=== PATIENT | female | born 1990 | race African-American/Black ===

== ENCOUNTER 2018-09-02 00:35 | Emergency (ER) | payer OTHER ==
[~2018-09-02] VITALS: Ht 157.5 cm; Wt 59.0 kg
[2018-09-02] MEDS ORDERED: FOLIC ACID1 M1 PO (00:48)
[2018-09-02] MEDS ORDERED: MORPHINE S10 MG/5 ML ORAL (00:48)
[2018-09-02] MEDS ORDERED: Sodium Chloride 500ML 500 ML IV ONE (00:50)
[2018-09-02] MEDS ORDERED: HYDROmorphone 1mg/ml Carpuject IVP ONE ×3 (01:00→05:30)
[2018-09-02] MEDS ORDERED: DiphenhydrAMINE 50mg/ml Inj IVP ONE ×2 (01:00→03:45)
[2018-09-02] MEDS ORDERED: Sodium Chloride 500ML 550 ML IV SCH (01:00)
[2018-09-02 01:13] VITALS: BP 109/71
[2018-09-02 02:32] LABS: APPEARANCE,URINE CLEAR; BILIRUBIN, URINE NEGATIVE (NEGATIVE); COLOR,URINE PALE YELLOW; GLUCOSE, URINE (UA) NEGATIVE (NEGATIVE); KETONES,URINE NEGATIVE (NEGATIVE); LEUKOCYTE ESTERASE ,URINE NEGATIVE (NEGATIVE); NITRITE,URINE NEGATIVE (NEGATIVE); PH,URINE 6.5 (4.5-8.0); PROTEIN,URINE 4+ (NEGATIVE); UROBILINOGEN,URINE NORMAL MG/DL (0.0-1.0)
[2018-09-02 03:00] VITALS: BP 118/63
[2018-09-02] MEDS ORDERED: LET 3ml Soln TOPIC ONE (05:30)
[2018-09-02 06:00] VITALS: BP 115/76
[2018-09-02 06:20] VITALS: BP 115/76
--- NOTE | 2018-09-02 07:32 | Emergency Room Report ---
History of Present Illness General Chief Complaint: General Complaint Source: Patient Present Illness HPI Patient presents with sickle cell pain. Back and most joints. Denies fever or chills. Taking morphine 5 mg which she states is not controlling the pain. No productive cough, chest pain, NVD. She states that usually when this happens, she gets 3 doses of pain medicine (Dilaudid) and is sent home unless she needs transfusion. She has a PICC line R arm. She states that usually she gets treatment there but that blood samples not able to be obtained from line. No inflammation at site of line. Had exchange transfusion at beginning of the month. Not . No dysuria. No calf pain, edema. No diabetes. No depression. Allergies: Coded Allergies: ACETAMINOPHEN (Verified Allergy, Unknown, 09/02/18) CEFTRIAXONE (Verified Allergy, Unknown, 09/02/18) HYDROCODONE (Verified Allergy, Unknown, 09/02/18) LEVOFLOXACIN (Verified Allergy, Unknown, 09/02/18) PENICILLINS (Verified Allergy, Unknown, 09/02/18) VANCOMYCIN (Verified Allergy, Unknown, 09/02/18) Patient History Past Medical History: see triage record Past Surgical History: other - PICC line Social History: Denies: smoking Social History Narrative From [place] but visiting family here - with boyfriend Last Menstrual Period: 08/28/2018 Now: No : 6 Para: 4 Reviewed Nursing Documentation: PMH: Agreed; PSxH: Agreed Nursing Documentation-PMH Past Medical History: No History, Except For Hx Cardiac Problems: No - sickle cell Review of Systems All Other Systems: negative except mentioned in HPI Physical Exam Vital Signs Date Time Temp Pulse Resp B/P (MAP) Pulse Ox O2 Delivery O2 Flow Rate FiO2 09/02/18 00:43 98.4 102 16 109/71 94 Room Air 09/02/18 01:13 99 Sp02 EP Interpretation: reviewed, normal General Appearance: well appearing, no apparent distress, GCS 15 Head: normocephalic Eyes: bilateral eye normal inspection, bilateral eye PERRL, bilateral eye other - no pallor ENT: moist mucus membranes Neck: supple Respiratory: lungs clear, normal breath sounds Cardiovascular #1: regular rate, rhythm Cardiovascular #2: 2+ radial (R), 2+ femoral (R) Gastrointestinal: normal inspection, normal bowel sounds, non tender, no mass, non-distended Genitourinary: no CVA tenderness Musculoskeletal: back normal, gait/station normal, normal range of motion Neurologic: alert, oriented x3, grossly normal Psychiatric: mood/affect normal Skin: normal inspection, warm/dry Medical Decision Making Diagnostic Impression: Primary Impression: Sickle cell anemia with pain Additional Impression: Possible drug seeking behavior ER Course Patient with h/o sickle cell anemia with pain. DDx: occult infection, sickle cell crisis, bone marrow failure, inadequate pain control amongst others. Evaluation with labs, EKG, CXR. Treatment with IV hydration and analgesia. Analgesia given. Unable to draw blood. Refuses further attempts to draw blood unless more analgesia given. Patient refused CXR ( not informed). Lab and RN's unable to draw blood. L.E.T. applied by me to R femoral area. At attempt to draw blood femorally, she refuses to have blood drawn. Risk of due to bone marrow failure of infection explained to patient including . She understands, is not narcotized, but refuses to have blood drawn. Signed AMA. States will see PMD 09/03. Laboratory Tests Test 09/02/18 02:20 Urine Color Pale yellow Urine Appearance Clear Urine pH 6.5 (4.5-8.0) Urine Specific [place] 1.010 (1.005-1.035) Urine Protein 4+ (NEGATIVE) H Urine Glucose (UA) Negative (NEGATIVE) Urine Ketones Negative (NEGATIVE) Urine Blood Negative (NEGATIVE) Urine Nitrite Negative (NEGATIVE) Urine Bilirubin Negative (NEGATIVE) Urine Urobilinogen Normal MG/DL (0.0-1.0) Urine Leukocyte Esterase Negative (NEGATIVE) Urine RBC 0-2 /HPF (0 - 2) Urine WBC 0-2 /HPF (0 - 2) Urine Squamous Epithelial Cells Many /LPF (NONE/OCC) H Urine Bacteria None /HPF (NONE) Urine HCG, Qualitative Negative (NEGATIVE) Urine Opiates Screen Positive (NEGATIVE) H Urine Barbiturates Screen Negative (NEGATIVE) Phencyclidine (PCP) Screen Negative (NEGATIVE) Urine Amphetamines Screen Negative (NEGATIVE) Urine Benzodiazepines Screen Negative (NEGATIVE) Urine Cocaine Screen Negative (NEGATIVE) Urine Marijuana (THC) Screen Negative (NEGATIVE) EKG Diagnostic Results Rate: normal Rhythm: NSR ST Segments: no acute changes Rhythm Strip Diag. Results EP Interpretation: yes Rhythm: NSR, no PVC's, no ectopy Last Vital Signs Date Time Temp Pulse Resp B/P (MAP) Pulse Ox O2 Delivery O2 Flow Rate FiO2 09/02/18 06:20 98.6 65 13 115/76 95 Room Air 99 Status: improved Disposition: AGAINST MEDICAL ADVICE Condition: Improved Referrals: [facility] (PCP) Carlos Olmstead MD Sep 02, 2018 07:32
--- NOTE | 2018-09-02 12:20 | Cardiology Report ---
APPROVED REPORT EKG Measurement Heart [id number] Normal sinus rhythm Moderate voltage criteria for LVH, may be normal variant Nonspecific T wave abnormality Abnormal ECG
== END 2018-09-02 06:20 | disposition left against medical advice (07) ==
LOC: EMR 01:01
DX: D57.00 Hb-SS disease with crisis, unspecified (principal); Z88.0 Allergy status to penicillin; Z88.8 Allergy status to other drugs, medicaments and biological substances
CPT/HCPCS: 80307; 81003; 81025; 93005; 96361; 96374; 96375; 96376; 99284; J1170; J1200; J2405

== ENCOUNTER 2019-10-25 08:33 | Inpatient (IN) | payer OTHER ==
[~2019-10-25] VITALS: Ht 157.5 cm; Wt 63.5 kg
[~2019-10-25 08:33] MED LIST: FOLIC ACID1 M1 PO; MORPHINE S10 MG/5 ML ORAL
[2019-10-25] MEDS ORDERED: MORPHINE IR15 MG ORAL (08:40)
[2019-10-25] MEDS ORDERED: Metoclopramide 10mg/2ml Inj IVP ONE (09:00)
[2019-10-25] MEDS ORDERED: DiphenhydrAMINE 50mg/ml Inj IVP ONE ×3 (09:00→13:00)
[2019-10-25] MEDS ORDERED: HYDROmorphone 1mg/ml Carpuject IVP ONE ×3 (09:00→16:15)
--- NOTE | 2019-10-25 09:02 | Emergency Room Report ---
History of Present Illness General Chief Complaint: Pain Source: Patient Present Illness HPI Patient presents with 5 days of total body pain. This is how her sickle cell presents when she is in crisis. She denies fevers or chills. No vomiting or diarrhea. She has slight dysuria. Her last menstruation ended yesterday. In September she had a miscarriage at 5 months. She received blood transfusions at that time. She has been taking morphine 4 mg and it has not been controlling the pain. She has access in both of her arms - PICC lines. No sore throat, chest pain, palpitations, abdominal pain, shortness of breath, rashes, depression, anxiety, visual changes, dizziness, headache. Patient presented one time before with sickle cell pain. At that time she had no venous access. She declined femoral stick for blood and signed out AGAINST MEDICAL ADVICE. She was pressuring to have treatment with opiates. She claims that she usually gets better with 3 opiate shots and is able to go home most of the time. She lives in [place], [place]. She states she is considering moving to this area as there are no hospitals close to where she lives. Allergies: Coded Allergies: CEFTRIAXONE (Verified Allergy, Unknown, 09/02/18) HYDROCODONE (Verified Allergy, Unknown, 09/02/18) KETOROLAC (Verified Allergy, Unknown, 10/25/19) LEVOFLOXACIN (Verified Allergy, Unknown, 09/02/18) PENICILLINS (Verified Allergy, Unknown, 09/02/18) TRAMADOL (Verified Allergy, Unknown, 10/25/19) VANCOMYCIN (Verified Allergy, Unknown, 09/02/18) Patient History Past Medical History: see triage record Social History: Denies: smoking, alcohol use, drug use Social History Narrative Has children, they are being watched by her aunt -lives near [place]. Planning on moving back to this area : 7 Para: 4 Reviewed Nursing Documentation: PMH: Agreed; PSxH: Agreed Nursing Documentation-PMH Hx Cardiac Problems: No - sickle cell Review of Systems All Other Systems: negative except mentioned in HPI Physical Exam Vital Signs Date Time Temp Pulse Resp B/P (MAP) Pulse Ox O2 Delivery O2 Flow Rate FiO2 10/25/19 08:37 98.4 90 20 128/85 (99) 99 Sp02 EP Interpretation: reviewed, normal General Appearance: well appearing, no apparent distress, GCS 15 Head: normocephalic Eyes: bilateral eye PERRL, bilateral eye conjunctivae pale ENT: moist mucus membranes Neck: supple Respiratory: lungs clear, normal breath sounds Cardiovascular #1: regular rate, rhythm Cardiovascular #2: 2+ radial (R) Gastrointestinal: normal inspection, normal bowel sounds, non tender, no mass, non-distended Musculoskeletal: back normal, normal range of motion, gait/station normal Neurologic: alert, oriented x3 Psychiatric: mood/affect normal Skin: pallor Medical Decision Making Diagnostic Impression: Primary Impression: Sickle cell anemia with pain Additional Impression: UTI (urinary tract infection) Qualified Codes: N39.0 - Urinary tract infection, site not specified ER Course Patient with history of sickle cell presents with pain. Differential includes crisis, viral infection, urinary tract infection, bone marrow failure, possible drug-seeking behavior amongst others. Evaluation with EKG and labs. Treatment with IV hydration, Reglan, Benadryl and Dilaudid. Patient states she does not feel that she needs to be hospitalized at this time. Bloods drawn by HERMES shepherd. Elevated white count. Hemoglobin 8.5. Elevated LDH. Elevated reticulocyte count. Urinalysis with too numerous to count white cells. Elevated bilirubin. Tox screen positive for opiates. Rocephin ordered. Patient improved but still feels pain is not controlled after several doses of Dilaudid. Patient pressuring to have Dilaudid instead of fentanyl. Pressuring to have more doses of Benadryl. Vistaril given orally. Due to the combination of lack of pain control and UTI patient admitted to the hospital. Examined by Dr. Gallego in ED. Laboratory Tests Test 10/25/19 09:10 10/25/19 12:55 Urine Color Yellow Urine Appearance Slightly cloudy Urine pH 6.5 (4.5-8.0) Urine Specific [place] 1.010 (1.005-1.035) Urine Protein 3+ (NEGATIVE) H Urine Glucose (UA) Negative (NEGATIVE) Urine Ketones Negative (NEGATIVE) Urine Blood 5+ (NEGATIVE) H Urine Nitrite Negative (NEGATIVE) Urine Bilirubin Negative (NEGATIVE) Urine Urobilinogen Normal MG/DL (0.0-1.0) Urine Leukocyte Esterase 3+ (NEGATIVE) H Urine RBC 10-15 /HPF (0 - 2) H Urine WBC Tntc /HPF (0 - 2) H Urine Squamous Epithelial Cells Few /LPF (NONE/OCC) Urine Bacteria Few /HPF (NONE) Urine HCG, Qualitative Negative (NEGATIVE) Urine Opiates Screen Positive (NEGATIVE) H Urine Barbiturates Screen Negative (NEGATIVE) Phencyclidine (PCP) Screen Negative (NEGATIVE) Urine Amphetamines Screen Negative (NEGATIVE) Urine Benzodiazepines Screen Negative (NEGATIVE) Urine Cocaine Screen Negative (NEGATIVE) Urine Marijuana (THC) Screen Negative (NEGATIVE) White Blood Count 17.7 K/UL (4.8-10.8) H Red Blood Count 2.79 M/UL (4.20-5.40) L Hemoglobin 8.5 G/DL (12.0-16.0) L Hematocrit 24.9 % (37.0-47.0) L Mean Corpuscular Volume 89 FL (80-99) Mean Corpuscular Hemoglobin 30.4 PG (27.0-31.0) Mean Corpuscular Hemoglobin Concent 34.1 G/DL (32.0-36.0) Red Cell Distribution Width 13.2 % (11.6-14.8) Platelet Count 499 K/UL (150-450) H Mean Platelet Volume 4.5 FL (6.5-10.1) L Neutrophils (%) (Auto) 50.1 % (45.0-75.0) Lymphocytes (%) (Auto) 36.6 % (20.0-45.0) Monocytes (%) (Auto) 5.4 % (1.0-10.0) Eosinophils (%) (Auto) 6.8 % (0.0-3.0) H Basophils (%) (Auto) 1.1 % (0.0-2.0) Reticulocyte Count 7.6 % (0.5-2.0) H Prothrombin Time 10.1 SEC (9.30-11.50) Prothrombin Time INR 0.9 (0.9-1.1) Activated Partial Thromboplast Time 29 SEC (23-33) Sodium Level 145 MMOL/L (136-145) Potassium Level 4.2 MMOL/L (3.5-5.1) Chloride Level 110 MMOL/L (98-107) H Carbon Dioxide Level 28 MMOL/L (21-32) Anion Gap 7 mmol/L (5-15) Blood Urea Nitrogen 8 mg/dL (7-18) Creatinine 0.8 MG/DL (0.55-1.30) Estimate Glomerular Filtration Rate > 60 mL/min (>60) Glucose Level 88 MG/DL (74-106) Calcium Level 9.1 MG/DL (8.5-10.1) Total Bilirubin 1.7 MG/DL (0.2-1.0) H Direct Bilirubin 0.1 MG/DL (0.0-0.3) Aspartate Amino Transferase (AST) 35 U/L (15-37) Alanine Aminotransferase (ALT) 44 U/L (12-78) Alkaline Phosphatase 96 U/L (46-116) Lactate Dehydrogenase 248 U/L (135-225) H Total Protein 6.9 G/DL (6.4-8.2) Albumin 3.1 G/DL (3.4-5.0) L Globulin 3.8 g/dL Albumin/Globulin Ratio 0.8 (1.0-2.7) L Lipase 76 U/L (73-393) EKG Diagnostic Results Rate: normal Rhythm: NSR ST Segments: no acute changes - Minimal voltage criteria for LVH nonspecific T wave abnormalities Rhythm Strip Diag. Results EP Interpretation: yes Rhythm: NSR, no PVC's, no ectopy Chest X-Ray Diagnostic Results Chest X-Ray Diagnostic Results : Chest X-Ray Ordered: Yes # of Views/Limited/Complete: 1 View Indication: Chest Pain EP Interpretation: Yes Interpretation: no consolidation, no effusion, no pneumothorax Last Vital Signs Date Time Temp Pulse Resp B/P (MAP) Pulse Ox O2 Delivery O2 Flow Rate FiO2 10/25/19 19:04 136/89 10/25/19 17:00 97.6 79 21 97 10/25/19 16:56 Nasal Cannula 2.0 Status: improved Disposition: ADMITTED INPATIENT Condition: Serious Carlos Olmstead MD Oct 25, 2019 09:02
--- NOTE | 2019-10-25 09:05 | NUR ---
ED Nurse Note: pt relates 5 days of body aches and pain from sickle cell crisis.. no n/v. no dyspnea
--- NOTE | 2019-10-25 09:15 | NUR ---
ED Nurse Note: picc line patent but will not draw labs. warp hand called to draw pt. pt tolerates meds well.
[2019-10-25 10:12] LABS: APPEARANCE,URINE SLIGHTLY CLOUDY; BILIRUBIN, URINE NEGATIVE (NEGATIVE); GLUCOSE, URINE (UA) NEGATIVE (NEGATIVE); KETONES,URINE NEGATIVE (NEGATIVE); LEUKOCYTE ESTERASE ,URINE 3+ (NEGATIVE); NITRITE,URINE NEGATIVE (NEGATIVE); PH,URINE 6.5 (4.5-8.0); PROTEIN,URINE 3+ (NEGATIVE); UROBILINOGEN,URINE NORMAL MG/DL (0.0-1.0)
[2019-10-25 10:17] LABS: COLOR,URINE YELLOW
--- NOTE | 2019-10-25 10:20 | NUR ---
ED Nurse Note: continuous pickling line pickler helper recalled to obtain labs. pt tolerating ivf and meds well
--- NOTE | 2019-10-25 10:45 | NUR ---
ED Nurse Note: card doffer recalled and md aware pt requests more pain meds
[2019-10-25 10:55] VITALS: BP 124/77
--- NOTE | 2019-10-25 10:57 | NUR ---
ED Nurse Note: hotel clerk here to draw pt.
--- NOTE | 2019-10-25 11:39 | NUR ---
ED Nurse Note: weed science research technician here trying to draw labs. tolerates po well., pt remedicated for itching.
[2019-10-25 13:16] LABS: BLOOD UREA NITROGEN 8 mg/dL (7-18); CALCIUM 9.1 MG/DL (8.5-10.1); SODIUM 145 MMOL/L (136-145)
[2019-10-25 13:26] LABS: BASOPHILS % (AUTO) 1.1 % (0.0-2.0); EOSINOPHILS % (AUTO) 6.8 % (0.0-3.0); HEMATOCRIT 24.9 % (37.0-47.0); HEMOGLOBIN 8.5 G/DL (12.0-16.0); LYMPHOCYTES % (AUTO) 36.6 % (20.0-45.0); MEAN CORPUSCULAR VOLUME 89 FL (80-99); MONOCYTES % (AUTO) 5.4 % (1.0-10.0); NEUTROPHILS % (AUTO) 50.1 % (45.0-75.0); PLATELET COUNT 499 K/UL (150-450); RED BLOOD COUNT 2.79 M/UL (4.20-5.40); RED CELL DISTRIBUTION WIDTH 13.2 % (11.6-14.8); WHITE BLOOD COUNT 17.7 K/UL (4.8-10.8)
[2019-10-25 13:34] VITALS: BP 114/77
--- NOTE | 2019-10-25 13:34 | NUR ---
ED Nurse Note: pt tolerates femoral stick for lab obtainment by . pt with meds repeated for pain. no n/v
[2019-10-25 13:36] LABS: ANION GAP 7 mmol/L (5-15); CARBON DIOXIDE 28 MMOL/L (21-32); CHLORIDE 110 MMOL/L (98-107); CREATININE 0.8 MG/DL (0.55-1.30); POTASSIUM 4.2 MMOL/L (3.5-5.1)
[2019-10-25 13:46] LABS: ALANINE AMINOTRANSFERASE 44 U/L (12-78); ALBUMIN 3.1 G/DL (3.4-5.0); ALBUMIN/GLOBULIN RATIO 0.8 (1.0-2.7); ALKALINE PHOSPHATASE 96 U/L (46-116); ASPARTATE AMINO TRANSFERASE 35 U/L (15-37); BILIRUBIN,TOTAL 1.7 MG/DL (0.2-1.0)
[2019-10-25 13:48] LABS: BILIRUBIN,DIRECT 0.1 MG/DL (0.0-0.3)
[2019-10-25 14:19] LABS: INR 0.9 (0.9-1.1)
[2019-10-25] MEDS ORDERED: fentaNYL 100 mcg/2 mL IV ONE (16:15)
[2019-10-25 16:39] VITALS: BP 120/72
--- NOTE | 2019-10-25 16:39 | NUR ---
ED Nurse Note: pt to med surg with returned goods sorter. pain improved after last dose of meds prior to floor admission. no n/v
--- NOTE | 2019-10-25 16:50 | NUR ---
NURSE NOTES: Patient received from ER at 1650 to [address] [place], in stable condition. No distress on RA (sats 97% RA). O2 2L NC applied per order. Bilateral midlines noted, clamped. Patient refused skin assessment. VSS. Oriented patient to room, call light and medical equipment. Attempted to draw blood culture from TREY midline, no blood return, flushes easily. Generalized pain 9/10. No NV. Up to bathroom, voided. Last BM today (one hour ago per patient). Will call Dr. Gallego for admission orders. Call light in reach, bed in lowest position, will continue to monitor.
[2019-10-25 17:00] VITALS: BP 147/72
--- NOTE | 2019-10-25 18:16 | History & Physical ---
History of Present Illness General Date patient seen: Oct 25, 2019 Time patient seen: 04:00 Reason for Hospitalization: Pain Present Illness HPI This is a 29-year-old female with a past medical history of sickle cell disease who presents to the hospital complaining of diffuse body pain and joint pain. Patient was recently discharged from [facility] a couple days ago, specifics regarding this hospitalization are unclear however she presented today with 2 midlines. Currently patient states that the pain is severe and labs do show that she has an elevated LDH, reticulocyte count, and indirect bilirubin, hemoglobin is currently stable and is not indicative of need for blood transfusion at this time. Patient states at home she usually takes morphine but that is not helping the pain at the moment. She denies cough fever or chills. Pending chest x-ray to assess midline versus PICC line and rule out acute chest syndrome although patient does not have any symptoms. Her WBC is elevated however she denies symptoms of burning with urination cough, chest pain , or other discomfort besides diffuse body aches and joint pains, denies abdominal pain. Patient is being admitted to the hospital for sickle cell crisis, currently she is requesting IV Benadryl and IV Dilaudid, she endorses that she has allergies to many medications, virtually all antibiotics. She denies any other issues at this time but states she just is not severe diffuse body pain. Given that labs do confirm patient has been elevated retic count, LDH, and indirect bilirubin we will proceed with half NS, oxygen therapy, and aggressive pain management Allergies: Coded Allergies: CEFTRIAXONE (Verified Allergy, Unknown, 09/02/18) HYDROCODONE (Verified Allergy, Unknown, 09/02/18) KETOROLAC (Verified Allergy, Unknown, 10/25/19) LEVOFLOXACIN (Verified Allergy, Unknown, 09/02/18) PENICILLINS (Verified Allergy, Unknown, 09/02/18) TRAMADOL (Verified Allergy, Unknown, 10/25/19) VANCOMYCIN (Verified Allergy, Unknown, 09/02/18) Medication History Scheduled PRN Morphine HCl (Morphine Sulfate ER), 4 MG ORAL Q4HR PRN for For Pain, (Reported) Miscellaneous Medications Folic Acid (Folic Acid), 1 MG PO, (Reported) Discontinued Medications Morphine 10mg/5ml Oral Soln* (Morphine 10mg/5ml Oral Soln*), 10 MG ORAL for For Pain, (Reported) Discontinued Reason: Therapy completed Patient History Healthcare decision maker Resuscitation status Advanced Directive on File Review of Systems Review of Symptoms General ROS: no weight loss or fever Psychological ROS: no depression or mood changes, no memory loss Ophthalmic ROS: no visual changes or eye irritation ENT ROS: no nasal congestion, hearing loss, dizziness Allergy and Immunology ROS: no allergic symptoms or urticaria Hematological and Lymphatic ROS: no swollen glands, unusual bleeding or bruising Endocrine ROS: no polyuria, polydipsia, weight changes, temperature intolerance Respiratory ROS: no cough, shortness of breath, or wheezing Cardiovascular ROS: no chest pain or dyspnea on exertion Gastrointestinal ROS: denies abdominal pain, bright red blood in stool. Musculoskeletal ROS: + diffuse body pain, myalgias, joint pain Neurological ROS: no TIA or stroke symptoms Dermatological ROS: no new or changing skin lesions, rashes or pruritis Physical Exam Physical Exam General appearance: alert, cooperative, no distress, appears stated age Head: Normocephalic, without obvious abnormality, atraumatic Eyes: conjunctivae/corneas clear. PERRL, EOM's intact. Fundi benign Throat: Lips, mucosa, and tongue normal. Teeth and gums normal Neck: supple, symmetrical, trachea midline, no adenopathy, thyroid: not enlarged, symmetric, no tenderness/mass/nodules, no carotid bruit and no JVD Lungs: clear to auscultation bilaterally Heart: regular rate and rhythm, S1, S2 normal, no murmur, click, rub or gallop Abdomen: soft, non-tender. Bowel sounds normal. No masses, no organomegaly Extremities: extremities normal, atraumatic, no cyanosis or edema Pulses: 2+ and symmetric Skin: Skin color, texture, turgor normal. No rashes or lesions Neurologic: Grossly normal Last 24 Hour Vital Signs Date Time Temp Pulse Resp B/P (MAP) Pulse Ox O2 Delivery O2 Flow Rate FiO2 10/25/19 17:00 97.6 79 21 147/72 (97) 97 10/25/19 16:56 Nasal Cannula 2.0 10/25/19 16:39 98.4 72 20 120/72 99 Room Air 10/25/19 16:39 72 20 120/72 99 Room Air 10/25/19 13:34 77 20 114/77 99 Room Air 10/25/19 11:37 98.4 10/25/19 11:03 98.4 10/25/19 10:55 86 20 124/77 99 Room Air 10/25/19 08:37 98.4 90 20 128/85 (99) 99 Laboratory Tests Test 10/25/19 09:10 10/25/19 12:55 Urine Color Yellow Urine Appearance Slightly cloudy Urine pH 6.5 (4.5-8.0) Urine Specific [place] 1.010 (1.005-1.035) Urine Protein 3+ (NEGATIVE) H Urine Glucose (UA) Negative (NEGATIVE) Urine Ketones Negative (NEGATIVE) Urine Blood 5+ (NEGATIVE) H Urine Nitrite Negative (NEGATIVE) Urine Bilirubin Negative (NEGATIVE) Urine Urobilinogen Normal MG/DL (0.0-1.0) Urine Leukocyte Esterase 3+ (NEGATIVE) H Urine RBC 10-15 /HPF (0 - 2) H Urine WBC Tntc /HPF (0 - 2) H Urine Squamous Epithelial Cells Few /LPF (NONE/OCC) Urine Bacteria Few /HPF (NONE) Urine HCG, Qualitative Negative (NEGATIVE) Urine Opiates Screen Positive (NEGATIVE) H Urine Barbiturates Screen Negative (NEGATIVE) Phencyclidine (PCP) Screen Negative (NEGATIVE) Urine Amphetamines Screen Negative (NEGATIVE) Urine Benzodiazepines Screen Negative (NEGATIVE) Urine Cocaine Screen Negative (NEGATIVE) Urine Marijuana (THC) Screen Negative (NEGATIVE) White Blood Count 17.7 K/UL (4.8-10.8) H Red Blood Count 2.79 M/UL (4.20-5.40) L Hemoglobin 8.5 G/DL (12.0-16.0) L Hematocrit 24.9 % (37.0-47.0) L Mean Corpuscular Volume 89 FL (80-99) Mean Corpuscular Hemoglobin 30.4 PG (27.0-31.0) Mean Corpuscular Hemoglobin Concent 34.1 G/DL (32.0-36.0) Red Cell Distribution Width 13.2 % (11.6-14.8) Platelet Count 499 K/UL (150-450) H Mean Platelet Volume 4.5 FL (6.5-10.1) L Neutrophils (%) (Auto) 50.1 % (45.0-75.0) Lymphocytes (%) (Auto) 36.6 % (20.0-45.0) Monocytes (%) (Auto) 5.4 % (1.0-10.0) Eosinophils (%) (Auto) 6.8 % (0.0-3.0) H Basophils (%) (Auto) 1.1 % (0.0-2.0) Reticulocyte Count 7.6 % (0.5-2.0) H Prothrombin Time 10.1 SEC (9.30-11.50) Prothromb Time International Ratio 0.9 (0.9-1.1) Activated Partial Thromboplast Time 29 SEC (23-33) Sodium Level 145 MMOL/L (136-145) Potassium Level 4.2 MMOL/L (3.5-5.1) Chloride Level 110 MMOL/L (98-107) H Carbon Dioxide Level 28 MMOL/L (21-32) Anion Gap 7 mmol/L (5-15) Blood Urea Nitrogen 8 mg/dL (7-18) Creatinine 0.8 MG/DL (0.55-1.30) Estimat Glomerular Filtration Rate > 60 mL/min (>60) Glucose Level 88 MG/DL (74-106) Calcium Level 9.1 MG/DL (8.5-10.1) Total Bilirubin 1.7 MG/DL (0.2-1.0) H Direct Bilirubin 0.1 MG/DL (0.0-0.3) Aspartate Amino Transf (AST/SGOT) 35 U/L (15-37) Alanine Aminotransferase (ALT/SGPT) 44 U/L (12-78) Alkaline Phosphatase 96 U/L (46-116) Lactate Dehydrogenase 248 U/L (135-225) H Total Protein 6.9 G/DL (6.4-8.2) Albumin 3.1 G/DL (3.4-5.0) L Globulin 3.8 g/dL Albumin/Globulin Ratio 0.8 (1.0-2.7) L Lipase 76 U/L (73-393) Height (Feet): 5 Height (Inches): 2.00 Weight (Pounds): 128 Medications Current Medications Medications (Trade) Dose Ordered Sig/Kelly Route PRN Reason Start Time Stop Time Status Last Admin Dose Admin Diphenhydramine HCl (Benadryl) 25 mg Q6H PRN IVP Itching 10/25/19 17:45 11/24/19 17:44 Enalaprilat (Vasotec) 2.5 mg EVERY 6 HOURS IV 10/25/19 18:00 11/24/19 17:59 Hydromorphone HCl (Dilaudid) 1 mg Q4H PRN IVP For Pain 10/25/19 17:45 11/01/19 17:44 Ondansetron HCl (Zofran) 4 mg Q6H PRN IVP Nausea & Vomiting 10/25/19 18:00 11/24/19 17:59 Sodium Chloride 1,000 ml @ 125 mls/hr Q8H IV 10/25/19 17:45 11/24/19 17:44 Sodium Chloride 1,000 ml @ 300 mls/hr Q3H20M IV 10/25/19 09:00 11/24/19 08:59 10/25/19 12:48 Assessment/Plan Status: stable Assessment/Plan: Assessment #Sickle cell crisis, labs reveal elevated reticulocyte count, LDH, indirect bilirubin, hemoglobin is currently stable and patient is not requiring blood transfusion #Leukocytosis, no obvious signs of infection at this point in time, however will obtain pancultures patient does have bilateral midlines, obtain urine culture, and chest x-ray Plan Half NS at 125 cc/h, nasal cannula 2 L at all times, aggressive pain control with IV.Dilaudid and Benadry (patient states this is the only pain medication that works for her, while labs are indicative of sickle cell will continue pain meds ) Pending chest x-ray to ensure no signs of infiltrate or developing infiltrate rule out ACS although doubt as patient is not hypoxic and has no symptoms Monitor daily LDH, reticulocyte count, indirect bilirubin Blood cultures Patient has multiple antibiotic allergies, will try doxycycline IV for now until blood cultures return and urine culture returns negative Folic acid and hydroxyurea PRN enalapril for elevated blood pressure Diet as tolerated Ambulate for DVT prophylaxis MIPS Hospital declaration INPATIENT level of care is warranted for this patient because patient is a 89 year old with who presents with suspicion of . I have a high level of concern because . Patient is at high risk for . Plan of care/treatment include . Patient care is expected to be greater than 2 midnights. OBSERVATION level of care is warranted for this patient. Patient is a 89 year old with who presents with . Patient will be admitted for 1 midnight, but if additional night(s) is/are necessary, patient will be converted to inpatient status for the entire hospitalization Disposition: Once the patient is stable to leave the hospital, I anticipate the patient will likely be discharged to the following environment: Estimated discharge date: I spent 70 minutes on this patient's case, and minutes was dedicated to counseling and/or care coordination. MIPS (Merit-based Incentive Payment System) Applicable CPT: 40245, 14962 CHECK ALL THAT ARE MET: Measure #5 (CHF): All ages. Prescribe MARCELINO/ARB upon discharge for patients with left ventricular systolic dysfunction. If not, the reason is clearly documented in the medical chart. Measure #8 (CHF): All ages. Prescribe a beta richie upon discharge for patients with left ventricular systolic dysfunction. If not, the reason is clearly documented in the medical chart. Measure #47 Advance care plan or surrogate decision maker documented in the medical record. Measure #130 The provider has documented, updated, or reviewed the patients current medication list and has documented it in the patients note. Measure #374 (All): Send report to referring provider. Measure #407(Sepsis due to MSSA bacteremia): Age 18+ Patient treated with a beta-lactam antibiotic (Nafcillin, Oxacillin or Cefazolin) as definitive therapy. MEDICAL COMPLEXITY High complexity medical decision making (need 2/3 categories) Problem - need 4 points Acute/new problem with new plan for workup (4 points, 1 max) Acute/new problem without additional workup (3 points, 1 max) Unstable chronic problem actively being managed (2 point each, 2 max) Stable chronic problem actively being managed (1 point each, 2 max) Self-limited/transient process (constipation, muscle ache, etc) (1 point each , 2 max) Data - need 4 points Reviewed labs/imaging studies (1 points, 2 max) Independent review of imaging (EKG, xrays, etc) (2 points, 2 max) Discussed case with consult/other MD/RN (2 points, 2 max) High Risk - qualify if have one of the following: Severe exacerbation of acute problem, acute mental status change, IV narcotics , monitoring drug levels (vancomycin, INR, tacrolimus etc) Phylicia Gallego D.O. Oct 25, 2019 18:16
[2019-10-25] MEDS: HYDROmorphone 1mg/ml Carpuject IVP PRN ×2 (18:35→22:46)
[2019-10-25] MEDS: DiphenhydrAMINE 50mg/ml Inj IVP PRN (18:45)
[2019-10-25 19:02] VITALS: BP 136/89
[2019-10-25] MEDS: Enalaprilat 1.25mg/ml Inj IV SCH (19:04)
--- NOTE | 2019-10-25 19:05 | NUR ---
NURSE NOTES: Patient updated with new admission orders/medications and upcoming CXR to check for line placement and any acute lung disease, patient verbalized understanding. Medicated with Dilaudid and Benadryl, see eMAR, tolerated well. Dinner tray and snack provided, no NV. IVF as ordered, see eMAR. Rechecked BP/HR stable, administered Vasotec as ordered. Will continue to monitor.
--- NOTE | 2019-10-25 19:43 | NUR ---
HAND-OFF: Report given to Noelle GAMA. Endorsed new admission orders.
--- NOTE | 2019-10-25 19:44 | NUR ---
NURSE NOTES: Received report & pt from LANETTE Lee. Pt lying in bed, a&ox4, on O2 via NC @ 2LPM. No s/s of acute distress & c/o 8 pain. Will give PRN pain med when due. DARIANA midline & TREY midline intact. TREY midline with IVF running as ordered. Plan of care discussed.
[2019-10-25 20:00] VITALS: BP 139/96
--- NOTE | 2019-10-25 20:15 | NUR ---
NURSE NOTES: Sand Conditioner was able to get blood peripherally for blood culture. Per AM shift report earlier, TREY midline double lumen port doesn't draw blood & DARIANA midline is backed up.
[2019-10-25] MEDS: Doxycycline Hyclate 100 MG in D5W 110 ML IV SCH (21:54)
--- NOTE | 2019-10-26 00:08 | NUR ---
NURSE NOTES: Pt refused scheduled Vasotec IV stating, "I don't have high blood pressure. Well, if my blood pressure is mot high, I don't need that". Explained risk & benefits but pt continued to refuse. BP checked 125/69 pulse rate 69.
[2019-10-26 00:10] VITALS: BP 125/89
[2019-10-26] MEDS: DiphenhydrAMINE 50mg/ml Inj IVP PRN ×3 (02:36→18:40)
[2019-10-26] MEDS: HYDROmorphone 1mg/ml Carpuject IVP PRN ×6 (02:37→22:53)
[2019-10-26 04:59] VITALS: BP 139/83
[2019-10-26] MEDS: Enalaprilat 1.25mg/ml Inj IV SCH ×5 (06:00→23:42)
--- NOTE | 2019-10-26 07:34 | NUR ---
HAND-OFF: Report given to LANETTE Mcgowan. Rounds done.
--- NOTE | 2019-10-26 07:35 | NUR ---
NURSE NOTES: Patient lying in bed awake. Complain of pain 9/10 and pain medication given by shift superintendent nurse. Will continue to monitor. Skin intact and dry. On O2 @ 2L via NC. Midline IV dressing intact and dry. Bed lowest position. Call light within reach. Will continue to monitor.
[2019-10-26 08:00] VITALS: BP 119/78
[2019-10-26] MEDS: Doxycycline Hyclate 100 MG in D5W 110 ML IV SCH ×2 (08:46→20:49)
[2019-10-26] MEDS: Hydroxyurea 500mg cap ORAL SCH (08:46)
[2019-10-26 12:00] VITALS: BP 108/79
--- NOTE | 2019-10-26 15:23 | NUR ---
*-* INSURANCE *-* ALL CLINICALS AND REVIEWS HAVE BEEN FAXED TO: [facility]# [phone] FAX# [phone] REVIEWS/CLINICALS
[2019-10-26 16:00] VITALS: BP 110/70
--- NOTE | 2019-10-26 16:00 | NUR ---
NURSE NOTES: Phlebotomy not able to get blood for morning lab. Spoke to regarding lab test and ok to do it tomorrow morning. Order noted and carried out.
--- NOTE | 2019-10-26 16:44 | Diagnostic Imaging Report ---
Indication: Acute chest syndrome, evaluation of line placement Technique: 2 views of the chest Comparison: No Findings: There is a right arm catheter, presumably a midline, tip terminating at the expected level of the right axillary vein. There are atelectatic changes at both lung bases. The lungs and pleural spaces are otherwise clear. There are cholecystectomy clips. The bones are unremarkable Impression: Right arm midline, tip terminating at the axillary vein level Bilateral basilar atelectasis
--- NOTE | 2019-10-26 17:11 | General Progress Note ---
Assessment/Plan Status: stable Assessment/Plan: #Sickle cell pain crisis, labs reveal elevated reticulocyte count, LDH, indirect bilirubin, hemoglobin is currently stable and patient is not requiring blood transfusion #Leukocytosis, no obvious signs of infection at this point in time, however will obtain pancultures patient does have bilateral midlines, obtain urine culture, and chest x-ray #Suspecte UTI. Rule out Pyelo Appreciate heme-onc consultation - need to confirm that she does in fact have sickle cell, though base on labs does appear likely - sickle cell screen is pending - consider hgb electrophoresis as well - hydroxyurea as needed to prevent cva/heart disease, vascular events in future - hemolysis labs as needed - IVF and pain management - Continue doxycycline for possible atypical pneumonia - Continue aztreonam for suspected UTI/pneumonia - patient with multiple abx allergies - 2v CXR: without consolidation - Will consult infectious disease # Hyperbiliribinemia - likely due to rbc breakdown - continue to monitor # Dehydration - goal of euvolemia - fluids started DVT ppx: Heparin SQ Code status: Full 38 minutes spent on this encounter. Discussed with RN and heme/onc. > 50% spent on counseling and care coordination. Time of note may not reflect time patient was seen. Subjective Allergies: Coded Allergies: CEFTRIAXONE (Verified Allergy, Unknown, 09/02/18) HYDROCODONE (Verified Allergy, Unknown, 09/02/18) KETOROLAC (Verified Allergy, Unknown, 10/25/19) LEVOFLOXACIN (Verified Allergy, Unknown, 09/02/18) PENICILLINS (Verified Allergy, Unknown, 09/02/18) TRAMADOL (Verified Allergy, Unknown, 10/25/19) VANCOMYCIN (Verified Allergy, Unknown, 09/02/18) Subjective No acute events overnight per nursing. Patient states that she is still having pain and that it is generalized but the pain medicine is working for her. She states that she is having some pain in her chest but it is more on palpation and associated with sickle cell pain crises that she is had in the past. Pain does not worsen on exertion. She denies any fevers or chills. She does endorse dysuria. Review of systems: Constitutional: Denies: chills, diaphoresis, fever, malaise, weakness, other HEENT: Denies: eye pain, blurred vision, tearing, double vision, ear pain, ear discharge, nose pain, nose congestion, throat pain, throat swelling, mouth pain , mouth swelling, Cardiovascular: Denies: chest pain, edema, lightheadedness, palpitations, syncope, Respiratory: Denies: cough, orthopnea, shortness of breath, SOB with excertion , SOB at rest, sputum, stridor, wheezing, other Gastrointestinal/Abdominal: Denies: abdomen distended, abdominal pain, black stools, tarry stools, blood in stool, constipated, diarrhea, difficulty swallowing, nausea, poor appetite, poor fluid intake, rectal bleeding, vomiting , other Genitourinary: See HPI Neurologic/Psychiatric: Denies: anxiety, depressed, emotional problems, headache, numbness, paresthesia, pre-existing deficit, seizure, tingling, tremors, weakness, other Endocrine: Denies: excessive sweating, flushing, intolerance to cold, intolerance to heat, increased hunger, increased thirst, increased urine, unexplained weight gain, unexplained weight loss, other Hematologic/Lymphatic: Denies: anemia, easy bleeding, easy bruising, other Objective Last 24 Hour Vital Signs Date Time Temp Pulse Resp B/P (MAP) Pulse Ox O2 Delivery O2 Flow Rate FiO2 10/26/19 12:00 97.0 72 18 108/79 (89) 95 10/26/19 12:00 108/79 10/26/19 09:00 Nasal Cannula 2.0 10/26/19 08:00 98.4 87 20 119/78 (92) 96 10/26/19 06:00 139/83 10/26/19 04:59 98.3 83 18 139/83 (101) 99 10/26/19 00:10 98.2 69 17 125/89 (101) 100 10/26/19 00:00 125/89 10/25/19 21:00 Nasal Cannula 2.0 10/25/19 20:00 98.9 82 18 139/96 (110) 100 10/25/19 19:04 136/89 10/25/19 19:02 92 136/89 (105) Intake and Output 10/25/19 10/26/19 19:00 07:00 Intake Total 1118 ml 1375 ml Balance 1118 ml 1375 ml Intake Oral 118 ml IV Total 1000 ml 1375 ml # Voids 2 # Bowel Movements 2 Height (Feet): 5 Height (Inches): 2.00 Weight (Pounds): 120 Objective General: WDWN female in NAD, A&O x 4 HEENT: Normocephalic cephalic atraumatic, pupils equal round reactive to light and accommodation, nares patent and no symmetrical, no tonsillar exudates, mucous membranes moist CV: Regular rate regular rhythm, no murmurs, rubs, or gallops Pulm: Lungs clear to auscultation bilaterally. No wheezes, rhonchi, or rales GI: Soft, nontender, nondistended, bowel sounds present Neuro: CN 2-12 intact bilaterally, no focal signs. Ext: No lower extremity edema bilaterally Skin: no rashes lesions or ulcers Msk: Joints symmetrical in upper extremity and lower extremity bilaterally, no joint swelling. Lymph: No lymphadenopathy in upper extremity and lower extremity Gerhard Morgan D.O. Oct 26, 2019 17:11
--- NOTE | 2019-10-26 19:27 | NUR ---
CASE MANAGEMENT: REVIEW 29 YEAR OLD FEMALE PRESENTED TO ED FROM HOME CC: PAIN X5 DAYS . HX SICKLE CELL SI: SICKLE CELL CRISIS . UTI T 98.4 HR 90 RR 20 BP 128/85 SAT 99% ROOM AIR WBC 17.7 H/H 8.5/24.[address] 7.6 IS: FENTANYL IV X1 DILAUDID IV X1 BENADRYL IV X1 REGLAN IV X1 NS IVF BOLUS X1 PATIENT ADMITTED TO MED/SURG UNIT 10/25/2019 DCP: PATIENT IS FROM HOME
--- NOTE | 2019-10-26 19:30 | NUR ---
HAND-OFF: Report given to Hung GAMA. Patient in stable condition.
--- NOTE | 2019-10-26 19:32 | NUR ---
NURSE NOTES: Received report from Renuka GAMA. Rounding is done with outgoing nurse. Patient in restroom with IV fluid running. Patient is a/o x4. C/o pain 05/19. Will give medication as ordered and Will continue to monitor. Patient doesn't wearing NC. Breathing is even and unlabored at this time. Midline IV dressing intact and dry. Bed is lowest position. Call light within reach. Will continue to monitor.
[2019-10-26] MEDS: Aztreonam Inj 2 GM in D5W 110 ML IVPB SCH (19:56)
[2019-10-26 20:00] VITALS: BP 131/87
--- NOTE | 2019-10-26 20:08 | NUR ---
NURSE NOTES: Patient didn't wear NC. Educated regarding O2 NC and patient wore NC with 2L/min at this time. Addendum: 10/26/19 at 2011 by Berto Conklin RN additional note: Breathing is even and unlabored with NC and No SOB noted at this time.
--- NOTE | 2019-10-26 20:34 | Consultation ---
History of Present Illness General Chief Complaint: Pain Present Illness Allergies: Coded Allergies: CEFTRIAXONE (Verified Allergy, Unknown, 09/02/18) HYDROCODONE (Verified Allergy, Unknown, 09/02/18) KETOROLAC (Verified Allergy, Unknown, 10/25/19) LEVOFLOXACIN (Verified Allergy, Unknown, 09/02/18) PENICILLINS (Verified Allergy, Unknown, 09/02/18) TRAMADOL (Verified Allergy, Unknown, 10/25/19) VANCOMYCIN (Verified Allergy, Unknown, 09/02/18) Medication History Scheduled PRN Morphine HCl (Morphine Sulfate ER), 4 MG ORAL Q4HR PRN for For Pain, (Reported) Miscellaneous Medications Folic Acid (Folic Acid), 1 MG PO, (Reported) Discontinued Medications Morphine 10mg/5ml Oral Soln* (Morphine 10mg/5ml Oral Soln*), 10 MG ORAL for For Pain, (Reported) Discontinued Reason: Therapy completed Patient History Healthcare decision maker Resuscitation status Full Code Advanced Directive on File No Physical Exam Last 24 Hour Vital Signs Date Time Temp Pulse Resp B/P (MAP) Pulse Ox O2 Delivery O2 Flow Rate FiO2 10/26/19 18:00 110/70 10/26/19 16:00 98.1 70 20 110/70 (83) 94 10/26/19 12:00 97.0 72 18 108/79 (89) 95 10/26/19 12:00 108/79 10/26/19 09:00 Nasal Cannula 2.0 10/26/19 08:00 98.4 87 20 119/78 (92) 96 10/26/19 06:00 139/83 10/26/19 04:59 98.3 83 18 139/83 (101) 99 10/26/19 00:10 98.2 69 17 125/89 (101) 100 10/26/19 00:00 125/89 10/25/19 21:00 Nasal Cannula 2.0 Intake and Output 10/25/19 10/26/19 19:00 07:00 Intake Total 1118 ml 1375 ml Balance 1118 ml 1375 ml Intake Oral 118 ml IV Total 1000 ml 1375 ml # Voids 2 # Bowel Movements 2 Height (Feet): 5 Height (Inches): 2.00 Weight (Pounds): 120 Medications Current Medications Medications (Trade) Dose Ordered Sig/Kelly Route PRN Reason Start Time Stop Time Status Last Admin Dose Admin Aztreonam 2 gm/ Dextrose 110 ml @ 220 mls/hr Q8H IVPB 10/26/19 20:00 11/02/19 19:59 10/26/19 19:56 Diphenhydramine HCl (Benadryl) 25 mg Q6H PRN IVP Itching 10/25/19 17:45 11/24/19 17:44 10/26/19 18:40 Doxycycline Hyclate 100 mg/ Dextrose 110 ml @ 110 mls/hr Q12HR IV 10/25/19 21:00 11/01/19 20:59 10/26/19 08:46 Enalaprilat (Vasotec) 2.5 mg EVERY 6 HOURS IV 10/25/19 18:00 11/24/19 17:59 10/25/19 19:04 Folic Acid (Folate) 1 mg DAILY ORAL 10/25/19 18:15 11/24/19 18:14 10/26/19 08:46 Hydromorphone HCl (Dilaudid) 1 mg Q4H PRN IVP For Pain 10/25/19 17:45 11/01/19 17:44 10/26/19 18:41 Hydroxyurea (Hydrea) 500 mg DAILY ORAL 10/26/19 09:00 10/31/19 08:59 10/26/19 08:46 Ondansetron HCl (Zofran) 4 mg Q6H PRN IVP Nausea & Vomiting 10/25/19 18:00 11/24/19 17:59 Sodium Chloride 1,000 ml @ 100 mls/hr Q10H IV 10/26/19 12:30 11/25/19 12:29 10/26/19 12:47 Assessment/Plan Assessment/Plan: Heme Consultation [facility] MD: Shanelle Omalley RFC: Sickle cell crisis DOS: 10/26/19 HPI This is a 29-year-old female with a past medical history of sickle cell disease who presents to the hospital complaining of diffuse body pain and joint pain. Patient was recently discharged from [place] a couple days ago, specifics regarding this hospitalization are unclear however she presented today with 2 midlines. Currently patient states that the pain is severe and labs do show that she has an elevated LDH, reticulocyte count, and indirect bilirubin, hemoglobin is currently stable and is not indicative of need for blood transfusion at this time. Patient states at home she usually takes morphine but that is not helping the pain at the moment. She denies cough fever or chills. Pending chest x-ray to assess midline versus PICC line and rule out acute chest syndrome although patient does not have any symptoms. Her WBC is elevated however she denies symptoms of burning with urination cough, chest pain , or other discomfort besides diffuse body aches and joint pains, denies abdominal pain. Patient is being admitted to the hospital for sickle cell crisis, currently she is requesting IV Benadryl and IV Dilaudid, she endorses that she has allergies to many medications, virtually all antibiotics. She denies any other issues at this time but states she just is not severe diffuse body pain. Given that labs do confirm patient has been elevated retic count, LDH, and indirect bilirubin we will proceed with half NS, oxygen therapy, and aggressive pain management hgb was 8.5 Allergies: Coded Allergies: CEFTRIAXONE (Verified Allergy, Unknown, 09/02/18) HYDROCODONE (Verified Allergy, Unknown, 09/02/18) KETOROLAC (Verified Allergy, Unknown, 10/25/19) LEVOFLOXACIN (Verified Allergy, Unknown, 09/02/18) PENICILLINS (Verified Allergy, Unknown, 09/02/18) TRAMADOL (Verified Allergy, Unknown, 10/25/19) VANCOMYCIN (Verified Allergy, Unknown, 09/02/18) Medication History Scheduled PRN Morphine HCl (Morphine Sulfate ER), 4 MG ORAL Q4HR PRN for For Pain, (Reported) Miscellaneous Medications Folic Acid (Folic Acid), 1 MG PO, (Reported) Discontinued Medications Morphine 10mg/5ml Oral Soln* (Morphine 10mg/5ml Oral Soln*), 10 MG ORAL for For Pain, (Reported) Discontinued Reason: Therapy completed Patient History Healthcare decision maker Resuscitation status Advanced Directive on File ROS (review of systems): Constitutional: No fever, no chills, no night sweats, no fatigue Skin: No rashes, lumps, itchiness, dryness HEENT: No TROTTER, ear ache, visual changes, double vision, nosebleeds Breasts: No lumps, pain, discharge Pulmonary: No cough, sputum, shortness of breath, coughing up blood Cardiovascular: No chest pain, tightness, palpitations, syncope, PND GI: No nausea, vomiting, diarrhea, melena, hematochezia, change in appetite, : No dysuria, frequency, urgency, urinary incontinence, foamy urine Musculoskeletal: No joint swelling or muscle pain, trauma, back pain ++ diffuse pain++ Neurologic: No dizziness, fainting, seizures, changes in smell or taste Psychiatric: No nervousness, stress, or depression, anxiety, hallucinations Endocrine: No weight change, heat or cold intolerance, tremor, insomnia Physical Exam: Vitals: reviewed General: NAD HEENT: nc, at Neck: supple Chest: clear breath sounds bilaterally Cardiovascular: RRR, no s3, s4 Abdomen: soft, nontender, nd Extremities: no cce, normal range of motion Neuro: alert and oriented Labs: noted Imaging: reviewed Assessment/Plan: # Sickle cell crisis, labs reveal elevated reticulocyte count, LDH, indirect bilirubin, hemoglobin is currently stable and patient is not requiring blood transfusion --> need to confirm that she does in fact have sickle cell, though base on labs does appear likely --> sickle cell screen is pending --> consider hgb electrophoresis as well --> hydroxyurea as needed to prevent cva/heart disease, vascular events in future --> hemolysis labs as needed --> IVF and pain management --> abx as needed # Leukocytosis, no obvious signs of infection at this point in time, however will obtain pancultures patient does have bilateral midlines, obtain urine culture, and chest x-ray --> monitor for resolution closely --> imaging prn # Hyperbiliribinemia --> likely due to rbc breakdown # Dehydration --> goal of euvolemia --> fluids started # Dvt ppx amb Appreciate consultation and dw Evaristo Davis MD Oct 26, 2019 20:33
[2019-10-26] MEDS: Heparin 5000 units/ml inj SUBQ SCH ×2 (21:00→21:09)
--- NOTE | 2019-10-26 21:18 | NUR ---
NURSE NOTES: Patient refused Heparin. Explained about medication Addendum: 10/26/19 at 2120 by Berto Conklin RN additional note: explained about medication, benefits and side effects. Offered 3 time but still refused.
[2019-10-27] VITALS: BP 122/79
[2019-10-27] MEDS: HYDROmorphone 1mg/ml Carpuject IVP PRN ×6 (02:55→23:20)
[2019-10-27] MEDS: DiphenhydrAMINE 50mg/ml Inj IVP PRN ×3 (02:56→18:29)
[2019-10-27] MEDS: Aztreonam Inj 2 GM in D5W 110 ML IVPB SCH ×3 (03:05→20:47)
[2019-10-27 04:00] VITALS: BP 128/81
[2019-10-27] MEDS: Enalaprilat 1.25mg/ml Inj IV SCH (06:00)
--- NOTE | 2019-10-27 06:28 | Hematology/Onc Progress Note ---
Assessment/Plan Assessment/Plan Assessment/Plan: # Sickle cell crisis, labs reveal elevated reticulocyte count, LDH, indirect bilirubin, hemoglobin is currently stable and patient is not requiring blood transfusion, she also has had a recent spontaenous in 09/2018. --> need to confirm that she does in fact have sickle cell, though base on labs does appear likely --> sickle cell screen is pending --> consider hgb electrophoresis as well --> hydroxyurea as needed to prevent cva/heart disease, vascular events in future (consider starting as outpatient) --> hemolysis labs as needed --> IVF and pain management --> abx as needed --> NONCOMPLIANT WITH LABS AND MEDS # Leukocytosis, no obvious signs of infection at this point in time, however will obtain pancultures patient does have bilateral midlines, obtain urine culture, and chest x-ray --> monitor for resolution closely --> imaging prn # Hyperbiliribinemia --> likely due to rbc breakdown # Dehydration --> goal of euvolemia --> fluids started # Dvt ppx amb and hep sq Appreciate consultation and sean Rn Subjective HEENT: Denies: no symptoms, eye pain, blurred vision, tearing, double vision, ear pain, ear discharge, nose pain, nose congestion, throat pain, throat swelling, mouth pain, mouth swelling, other Cardiovascular: Denies: no symptoms, chest pain, edema, irregular heart rate, lightheadedness, palpitations, syncope, other Respiratory: Denies: no symptoms, cough, shortness of breath, SOB with excertion, SOB at rest, sputum, wheezing, other Gastrointestinal/Abdominal: Denies: no symptoms, abdomen distended, abdominal pain, black stools, tarry stools, blood in stool, constipated, diarrhea, difficulty swallowing, nausea, poor appetite, poor fluid intake, rectal bleeding , vomiting, other Genitourinary: Denies: no symptoms, burning, discharge, frequency, flank pain, hematuria, incontinence, pain, urgency, other Neurologic/Psychiatric: Denies: no symptoms, anxiety, depressed, emotional problems, headache, numbness, paresthesia, pre-existing deficit, seizure, tingling, tremors, weakness, other Endocrine: Denies: no symptoms, excessive sweating, flushing, intolerance to cold, intolerance to heat, increased hunger, increased thirst, increased urine, unexplained weight gain, unexplained weight loss, other Hematologic/Lymphatic: Denies: no symptoms, anemia, easy bleeding, easy bruising, adenopathy, other Allergies: Coded Allergies: CEFTRIAXONE (Verified Allergy, Unknown, 09/02/18) HYDROCODONE (Verified Allergy, Unknown, 09/02/18) KETOROLAC (Verified Allergy, Unknown, 10/25/19) LEVOFLOXACIN (Verified Allergy, Unknown, 09/02/18) PENICILLINS (Verified Allergy, Unknown, 09/02/18) TRAMADOL (Verified Allergy, Unknown, 10/25/19) VANCOMYCIN (Verified Allergy, Unknown, 09/02/18) Subjective 10/27: labs noted, no bleeding or chills, mildly less pain today, says will consider f/u with heme outpatient Objective Objective Current Medications Medications (Trade) Dose Ordered Sig/Kelly Route PRN Reason Start Time Stop Time Status Last Admin Dose Admin Aztreonam 2 gm/ Dextrose 110 ml @ 220 mls/hr Q8H IVPB 10/26/19 20:00 11/02/19 19:59 10/27/19 03:05 Diphenhydramine HCl (Benadryl) 25 mg Q6H PRN IVP Itching 10/25/19 17:45 11/24/19 17:44 10/27/19 02:56 Doxycycline Hyclate 100 mg/ Dextrose 110 ml @ 110 mls/hr Q12HR IV 10/25/19 21:00 11/01/19 20:59 10/26/19 20:49 Enalaprilat (Vasotec) 2.5 mg EVERY 6 HOURS IV 10/25/19 18:00 11/24/19 17:59 10/25/19 19:04 Folic Acid (Folate) 1 mg DAILY ORAL 10/25/19 18:15 11/24/19 18:14 10/26/19 08:46 Heparin Sodium (Porcine) (Heparin 5000 units/ml) 5,000 units EVERY 12 HOURS SUBQ 10/26/19 21:00 11/25/19 20:59 Hydromorphone HCl (Dilaudid) 1 mg Q4H PRN IVP For Pain 10/25/19 17:45 11/01/19 17:44 10/27/19 02:55 Hydroxyurea (Hydrea) 500 mg DAILY ORAL 10/26/19 09:00 10/31/19 08:59 10/26/19 08:46 Ondansetron HCl (Zofran) 4 mg Q6H PRN IVP Nausea & Vomiting 10/25/19 18:00 11/24/19 17:59 Sodium Chloride 1,000 ml @ 100 mls/hr Q10H IV 10/26/19 12:30 11/25/19 12:29 10/26/19 12:47 Last 24 Hour Vital Signs Date Time Temp Pulse Resp B/P (MAP) Pulse Ox O2 Delivery O2 Flow Rate FiO2 10/27/19 06:00 128/81 10/27/19 04:00 97.8 96 17 128/81 (97) 96 10/27/19 00:00 97.6 99 16 122/79 (93) 96 10/26/19 23:42 122/79 10/26/19 21:00 Nasal Cannula 2.0 10/26/19 20:00 97.8 90 17 131/87 (102) 95 10/26/19 18:00 110/70 10/26/19 16:00 98.1 70 20 110/70 (83) 94 10/26/19 12:00 97.0 72 18 108/79 (89) 95 10/26/19 12:00 108/79 10/26/19 09:00 Nasal Cannula 2.0 10/26/19 08:00 98.4 87 20 119/78 (92) 96 10/26/19 06:00 139/83 10/26/19 04:59 98.3 83 18 139/83 (101) 99 10/26/19 00:10 98.2 69 17 125/89 (101) 100 10/26/19 00:00 125/89 10/25/19 21:00 Nasal Cannula 2.0 10/25/19 20:00 98.9 82 18 139/96 (110) 100 10/25/19 19:04 136/89 10/25/19 19:02 92 136/89 (105) 10/25/19 17:00 97.6 79 21 147/72 (97) 97 10/25/19 16:56 Nasal Cannula 2.0 10/25/19 16:39 98.4 72 20 120/72 99 Room Air 10/25/19 16:39 72 20 120/72 99 Room Air 10/25/19 13:34 77 20 114/77 99 Room Air 10/25/19 11:37 98.4 10/25/19 11:03 98.4 10/25/19 10:55 86 20 124/77 99 Room Air 10/25/19 08:37 98.4 90 20 128/85 (99) 99 Intake and Output 10/26/19 10/27/19 19:00 07:00 Intake Total 1110 ml 720 ml Balance 1110 ml 720 ml Intake Oral 500 ml IV Total 610 ml 720 ml # Voids 3 Labs Test 10/25/19 09:10 10/25/19 12:55 Urine Color Yellow Urine Appearance Slightly cloudy Urine pH 6.5 (4.5-8.0) Urine Specific [place] 1.010 (1.005-1.035) Urine Protein 3+ (NEGATIVE) Urine Glucose (UA) Negative (NEGATIVE) Urine Ketones Negative (NEGATIVE) Urine Blood 5+ (NEGATIVE) Urine Nitrite Negative (NEGATIVE) Urine Bilirubin Negative (NEGATIVE) Urine Urobilinogen Normal MG/DL (0.0-1.0) Urine Leukocyte Esterase 3+ (NEGATIVE) Urine RBC 10-15 /HPF (0 - 2) Urine WBC Tntc /HPF (0 - 2) Urine Squamous Epithelial Cells Few /LPF (NONE/OCC) Urine Bacteria Few /HPF (NONE) Urine HCG, Qualitative Negative (NEGATIVE) Urine Opiates Screen Positive (NEGATIVE) Urine Barbiturates Screen Negative (NEGATIVE) Phencyclidine (PCP) Screen Negative (NEGATIVE) Urine Amphetamines Screen Negative (NEGATIVE) Urine Benzodiazepines Screen Negative (NEGATIVE) Urine Cocaine Screen Negative (NEGATIVE) Urine Marijuana (THC) Screen Negative (NEGATIVE) White Blood Count 17.7 K/UL (4.8-10.8) Red Blood Count 2.79 M/UL (4.20-5.40) Hemoglobin 8.5 G/DL (12.0-16.0) Hematocrit 24.9 % (37.0-47.0) Mean Corpuscular Volume 89 FL (80-99) Mean Corpuscular Hemoglobin 30.4 PG (27.0-31.0) Mean Corpuscular Hemoglobin Concent 34.1 G/DL (32.0-36.0) Red Cell Distribution Width 13.2 % (11.6-14.8) Platelet Count 499 K/UL (150-450) Mean Platelet Volume 4.5 FL (6.5-10.1) Neutrophils (%) (Auto) 50.1 % (45.0-75.0) Lymphocytes (%) (Auto) 36.6 % (20.0-45.0) Monocytes (%) (Auto) 5.4 % (1.0-10.0) Eosinophils (%) (Auto) 6.8 % (0.0-3.0) Basophils (%) (Auto) 1.1 % (0.0-2.0) Reticulocyte Count 7.6 % (0.5-2.0) Prothrombin Time 10.1 SEC (9.30-11.50) Prothromb Time International Ratio 0.9 (0.9-1.1) Activated Partial Thromboplast Time 29 SEC (23-33) Sodium Level 145 MMOL/L (136-145) Potassium Level 4.2 MMOL/L (3.5-5.1) Chloride Level 110 MMOL/L (98-107) Carbon Dioxide Level 28 MMOL/L (21-32) Anion Gap 7 mmol/L (5-15) Blood Urea Nitrogen 8 mg/dL (7-18) Creatinine 0.8 MG/DL (0.55-1.30) Estimat Glomerular Filtration Rate > 60 mL/min (>60) Glucose Level 88 MG/DL (74-106) Calcium Level 9.1 MG/DL (8.5-10.1) Total Bilirubin 1.7 MG/DL (0.2-1.0) Direct Bilirubin 0.1 MG/DL (0.0-0.3) Aspartate Amino Transf (AST/SGOT) 35 U/L (15-37) Alanine Aminotransferase (ALT/SGPT) 44 U/L (12-78) Alkaline Phosphatase 96 U/L (46-116) Lactate Dehydrogenase 248 U/L (135-225) Total Protein 6.9 G/DL (6.4-8.2) Albumin 3.1 G/DL (3.4-5.0) Globulin 3.8 g/dL Albumin/Globulin Ratio 0.8 (1.0-2.7) Lipase 76 U/L (73-393) Height (Feet): 5 Height (Inches): 2.00 Weight (Pounds): 120 Objective Physical Exam: Vitals: reviewed General: NAD HEENT: nc, at Neck: supple Chest: clear breath sounds bilaterally Cardiovascular: RRR, no s3, s4 Abdomen: soft, nontender, nd Extremities: no cce, normal range of motion Neuro: alert and oriented Evaristo Uriostegui MD Oct 27, 2019 06:28
--- NOTE | 2019-10-27 07:34 | NUR ---
HAND-OFF: Report given to Gia GAMA. Patient in stable condition.
--- NOTE | 2019-10-27 07:35 | NUR ---
NURSE NOTES: pt awake alert, no distress. no c/o pain. pt refused to try blood draw from either of her lines, "its not going to work" pt is aware lab will be drawing blood. call light within reach. pt is up adlib. eating breakfast at this time.
[2019-10-27] MEDS ORDERED: HydrALAZINE 25mg tab ORAL PRN (07:45)
[2019-10-27 07:57] VITALS: BP 142/99
[2019-10-27] MEDS: Hydroxyurea 500mg cap ORAL SCH (08:11)
[2019-10-27] MEDS: Heparin 5000 units/ml inj SUBQ SCH ×2 (08:12→21:00)
[2019-10-27] MEDS: Doxycycline Hyclate 100 MG in D5W 110 ML IV SCH ×2 (08:30→20:51)
[2019-10-27] MEDS ORDERED: HYDROmorphone 4mg tab ORAL PRN (11:30)
[2019-10-27] MEDS ORDERED: Acetaminophen 500mg (ES) tab ORAL PRN (11:30)
[2019-10-27 11:32] VITALS: BP 130/92
[2019-10-27] MEDS ORDERED: HYDROmorphone 2mg tab ORAL PRN ×2 (12:00→13:50)
--- NOTE | 2019-10-27 13:32 | NUR ---
CASE MANAGEMENT: REVIEW 10/27/2019 SI: SICKLE CELL CRISIS . UTI 97.8 95 17 130/92 96%ON 2L NC IS: IVF NS@100ML/HR IV AZTREONAM Q8HR IV DOXYCYCLINE BID HYDREA PO QD IV BENADRYL Q6HR.PRN \: 3E MED/SURG UNIT DCP: PATIENT IS FROM HOME PLAN: MONITOR RETICULOCYTE COUNT
[2019-10-27] MEDS: HYDROmorphone 4mg tab ORAL PRN ×3 (13:59→22:16)
--- NOTE | 2019-10-27 14:03 | NUR ---
NURSE NOTES: attempted to draw blood from midline on left upper arm but only getting pinkish output, hard to get blood out, pt refused alteplase (ordered by dr Villa if needed) pt states "my doctor says not to touch both midline" right upper arm midline 2 lumen both appear to have blood on the lines , pt refused to have it flushed or touched.
--- NOTE | 2019-10-27 14:05 | NUR ---
NURSE NOTES: pt willing to get lab drawn peripherally stating "just not in the fingers, they can look anywhere else they just dont want to" will call lab
[2019-10-27 15:51] VITALS: BP 141/97
[2019-10-27] MEDS ORDERED: Tubing IV Secondary IV ONE (18:38)
[2019-10-27] MEDS ORDERED: 1/2 NS 1000ml IV ONE (18:38)
--- NOTE | 2019-10-27 19:15 | NUR ---
NURSE NOTES: Received report from LANETTE Mares. Pt is awake, lying semi-florez's; comfortably resting. No signs of acute distress noted. Pt denies any pain at this time. AOx4; able to make needs known. Checked IV site, line, and rate; patent and running. No erythema, infiltration or bleeding noted. Bed at lowest position. Brakes on. Siderails up x3. Call light within reach. Will continue to monitor.
--- NOTE | 2019-10-27 19:55 | General Progress Note ---
Assessment/Plan Status: stable Assessment/Plan: #Sickle cell pain crisis, labs reveal elevated reticulocyte count, LDH, indirect bilirubin, hemoglobin is currently stable and patient is not requiring blood transfusion #Leukocytosis, no obvious signs of infection at this point in time, however will obtain pancultures patient does have bilateral midlines, obtain urine culture, and chest x-ray #Suspecte UTI. Rule out Pyelo Appreciate heme-onc consultation - need to confirm that she does in fact have sickle cell, though base on labs does appear likely - sickle cell screen is pending - consider hgb electrophoresis as well - hydroxyurea as needed to prevent cva/heart disease, vascular events in future - hemolysis labs as needed - IVF and pain management - Dilaudid 6mg PRN for severe, 4mg for moderate, 1mg for BTP - Continue doxycycline for possible atypical pneumonia - Continue aztreonam for suspected UTI/pneumonia - patient with multiple abx allergies - 2v CXR: without consolidation - Will consult infectious disease -Patient hard stick. Okay to draw labs from midline. Patient agreed # Hyperbiliribinemia - likely due to rbc breakdown - continue to monitor # Dehydration - goal of euvolemia - fluids started DVT ppx: Heparin SQ Code status: Full 39 minutes spent on this encounter. Discussed with RN and heme/onc and ID. > 50 % spent on counseling and care coordination. Time of note may not reflect time patient was seen. Subjective Allergies: Coded Allergies: CEFTRIAXONE (Verified Allergy, Unknown, 09/02/18) HYDROCODONE (Verified Allergy, Unknown, 09/02/18) KETOROLAC (Verified Allergy, Unknown, 10/25/19) LEVOFLOXACIN (Verified Allergy, Unknown, 09/02/18) PENICILLINS (Verified Allergy, Unknown, 09/02/18) TRAMADOL (Verified Allergy, Unknown, 10/25/19) VANCOMYCIN (Verified Allergy, Unknown, 09/02/18) Subjective No acute events overnight per nursing. Patient feels about the same today. Continues to complain of chest pain, on palpation with breathing. Similar to past sickle cell pain crises. Continues complain of dysuria and frequency. Pain does not worsen on exertion. She denies any fevers or chills. She does endorse dysuria. Patient refusing blood draws from midline catheters. Now agreeing to them. Review of systems: As of 2/18/20 Constitutional: Denies: chills, diaphoresis, fever, malaise, weakness, other HEENT: Denies: eye pain, blurred vision, tearing, double vision, ear pain, ear discharge, nose pain, nose congestion, throat pain, throat swelling, mouth pain , mouth swelling, Cardiovascular: Denies: chest pain, edema, lightheadedness, palpitations, syncope, Respiratory: Denies: cough, orthopnea, shortness of breath, SOB with excertion , SOB at rest, sputum, stridor, wheezing, other Gastrointestinal/Abdominal: Denies: abdomen distended, abdominal pain, black stools, tarry stools, blood in stool, constipated, diarrhea, difficulty swallowing, nausea, poor appetite, poor fluid intake, rectal bleeding, vomiting , other Genitourinary: See HPI Neurologic/Psychiatric: Denies: anxiety, depressed, emotional problems, headache, numbness, paresthesia, pre-existing deficit, seizure, tingling, tremors, weakness, other Endocrine: Denies: excessive sweating, flushing, intolerance to cold, intolerance to heat, increased hunger, increased thirst, increased urine, unexplained weight gain, unexplained weight loss, other Hematologic/Lymphatic: Denies: anemia, easy bleeding, easy bruising, other Objective Last 24 Hour Vital Signs Date Time Temp Pulse Resp B/P (MAP) Pulse Ox O2 Delivery O2 Flow Rate FiO2 10/27/19 18:59 97.8 10/27/19 18:27 97.8 10/27/19 15:51 97.8 109 17 141/97 (112) 96 10/27/19 11:32 97.8 95 17 130/92 (105) 96 10/27/19 08:00 Nasal Cannula 2.0 10/27/19 07:57 97.8 96 17 142/99 (113) 96 10/27/19 07:33 97.8 10/27/19 06:00 128/81 10/27/19 04:00 97.8 96 17 128/81 (97) 96 10/27/19 00:00 97.6 99 16 122/79 (93) 96 10/26/19 23:42 122/79 10/26/19 21:00 Nasal Cannula 2.0 10/26/19 20:00 97.8 90 17 131/87 (102) 95 Intake and Output 10/26/19 10/27/19 19:00 07:00 Intake Total 1110 ml 720 ml Balance 1110 ml 720 ml Intake Oral 500 ml IV Total 610 ml 720 ml # Voids 3 Height (Feet): 5 Height (Inches): 2.00 Weight (Pounds): 120 Objective General: WDWN female in NAD, A&O x 4 HEENT: Normocephalic cephalic atraumatic, pupils equal round reactive to light and accommodation, nares patent and no symmetrical, no tonsillar exudates, mucous membranes moist CV: Regular rate regular rhythm, no murmurs, rubs, or gallops. Chest pain on palpation Pulm: Lungs clear to auscultation bilaterally. No wheezes, rhonchi, or rales GI: Soft, nontender, nondistended, bowel sounds present Neuro: CN 2-12 intact bilaterally, no focal signs. Ext: No lower extremity edema bilaterally Skin: no rashes lesions or ulcers Msk: Joints symmetrical in upper extremity and lower extremity bilaterally, no joint swelling. Lymph: No lymphadenopathy in upper extremity and lower extremity Gerhard Morgan D.O. Oct 27, 2019 19:55
[2019-10-27 20:00] VITALS: BP 133/97
[2019-10-27] MEDS ORDERED: Dyna-Hex 2% Top Sol 2oz TOPIC SCH (20:00)
--- NOTE | 2019-10-27 22:00 | Infectious Diseases Prog Note ---
Assessment/Plan Assessment/Plan Full consult dictated: A) 1) uti, leukocytosis, ? 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 - can also contribute to leukocytosis 3) pmh noted 4) allergies - pcn, levofloxacin, vancomycin P) 1) aztreonam and doxycycline 2) surveillance urinalysis and culture 3) blood cultures negative to date 4) monitor labs 5) thank you Subjective Allergies: Coded Allergies: CEFTRIAXONE (Verified Allergy, Unknown, 09/02/18) HYDROCODONE (Verified Allergy, Unknown, 09/02/18) KETOROLAC (Verified Allergy, Unknown, 10/25/19) LEVOFLOXACIN (Verified Allergy, Unknown, 09/02/18) PENICILLINS (Verified Allergy, Unknown, 09/02/18) TRAMADOL (Verified Allergy, Unknown, 10/25/19) VANCOMYCIN (Verified Allergy, Unknown, 09/02/18) Objective Vital Signs Last 24 Hour Vital Signs Date Time Temp Pulse Resp B/P (MAP) Pulse Ox O2 Delivery O2 Flow Rate FiO2 10/27/19 18:59 97.8 10/27/19 18:27 97.8 10/27/19 15:51 97.8 109 17 141/97 (112) 96 10/27/19 11:32 97.8 95 17 130/92 (105) 96 10/27/19 08:00 Nasal Cannula 2.0 10/27/19 07:57 97.8 96 17 142/99 (113) 96 10/27/19 07:33 97.8 10/27/19 06:00 128/81 10/27/19 04:00 97.8 96 17 128/81 (97) 96 10/27/19 00:00 97.6 99 16 122/79 (93) 96 10/26/19 23:42 122/79 Height (Feet): 5 Height (Inches): 2.00 Weight (Pounds): 120 Microbiology Date/Time Source Procedure Growth Status 10/25/19 20:00 Blood Blood Culture - Preliminary NO GROWTH AFTER 24 HOURS Resulted 10/25/19 09:10 Urine,Clean Catch Urine Culture - Preliminary Mixed Gram Positive Organism Resulted Current Medications Medications (Trade) Dose Ordered Sig/Kelly Route PRN Reason Start Time Stop Time Status Last Admin Dose Admin Acetaminophen (Tylenol) 500 mg Q4H PRN ORAL Mild Pain/Temp > 100.5 10/27/19 11:30 11/26/19 11:29 Aztreonam 2 gm/ Dextrose 110 ml @ 220 mls/hr Q8H IVPB 10/26/19 20:00 11/02/19 19:59 10/27/19 20:47 Chlorhexidine Gluconate (Angélica-Hex 2%) 1 applic DAILY@2000 TOPIC 10/27/19 20:00 11/26/19 19:59 10/27/19 20:46 Diphenhydramine HCl (Benadryl) 25 mg Q6H PRN IVP Itching 10/25/19 17:45 11/24/19 17:44 10/27/19 18:29 Doxycycline Hyclate 100 mg/ Dextrose 110 ml @ 110 mls/hr Q12HR IV 10/25/19 21:00 11/01/19 20:59 10/27/19 20:51 Folic Acid (Folate) 1 mg DAILY ORAL 10/25/19 18:15 11/24/19 18:14 10/27/19 08:11 Heparin Sodium (Porcine) (Heparin 5000 units/ml) 5,000 units EVERY 12 HOURS SUBQ 10/26/19 21:00 11/25/19 20:59 Hydralazine HCl (Apresoline) 25 mg Q6H PRN ORAL SBP>160 10/27/19 07:45 11/26/19 07:44 Hydromorphone HCl (Dilaudid) 1 mg Q4H PRN IVP breakthrough pain 10/27/19 12:00 11/03/19 11:59 10/27/19 18:29 Hydromorphone HCl (Dilaudid) 4 mg Q4H PRN ORAL moderate pain 4-7 10/27/19 13:50 11/03/19 13:49 10/27/19 17:57 Hydromorphone HCl (Dilaudid) 6 mg Q4H PRN ORAL Severe Pain (Pain Scale 7-10) 10/27/19 13:50 11/03/19 13:49 Hydroxyurea (Hydrea) 500 mg DAILY ORAL 10/26/19 09:00 10/31/19 08:59 10/27/19 08:11 Ondansetron HCl (Zofran) 4 mg Q6H PRN IVP Nausea & Vomiting 10/25/19 18:00 11/24/19 17:59 Sodium Chloride 1,000 ml @ 100 mls/hr Q10H IV 10/26/19 12:30 11/25/19 12:29 10/27/19 08:32 Ban Durant MD Oct 27, 2019 22:00
[2019-10-28] VITALS: BP 145/100
--- NOTE | 2019-10-28 01:00 | Consultation ---
DATE OF CONSULTATION: 10/27/2019 INFECTIOUS DISEASE CONSULTATION CONSULTING PHYSICIAN: Ban Durant M.D. ATTENDING PHYSICIAN: Dali Omalley M.D. REFERRING PHYSICIAN: Gerhard Morgan REASON FOR CONSULTATION: Urinary tract infection, possible sepsis, and elevated white count. CHIEF COMPLAINT: The patient's chief complaint coming in to the hospital is sickle cell crisis and urinary tract infection. HISTORY OF PRESENT ILLNESS: This is a very pleasant 29-year-old female with history of sickle cell anemia, who comes in to [facility] with sickle cell crisis and sickle cell pain syndrome. The patient was noted to have urinary tract infection with a white count of 17.7, likely complicated urinary tract infection. UA had 3+ leukocyte esterase and too many to count white blood cells. Infectious Disease consultation is requested because of urinary tract infection, possible sepsis, and leukocytosis. Of note, the patient also has sickle cell crisis, which could contribute to leukocytosis. The patient is allergic to multiple antibiotics including Levaquin, penicillin, and vancomycin. She is currently on aztreonam and doxycycline. Urine culture with mixed organisms. Blood cultures negative to date. MAR was noted. Orders were noted. Notes and records were reviewed. We will continue aztreonam and doxycycline for now for the urinary tract infection, possible sepsis, and elevated white count. REVIEW OF SYSTEMS: CONSTITUTIONAL: Main issue is generalized pain. She has no fever or chills or night sweats or weight loss. She has generalized pain. She has no rash or itching. CARDIAC: She does have back and chest pain. GASTROINTESTINAL: No nausea, vomiting, or diarrhea. GENITOURINARY: She has dysuria, frequency, and pain upon urination. PULMONARY: No shortness of breath, cough, or congestion. SKIN: No rash. NEUROLOGIC: No seizures. PAST MEDICAL HISTORY: The patient's past medical history includes the following. The patient has a past medical history of sickle cell anemia and sickle cell crisis. She has no history of diabetes or hypertension. She has history of pain secondary to sickle cell crisis. She has history of anemia. MEDICATIONS: Upon reviewing the MAR, she is on the following medications. She is on chlorhexidine and hydromorphone. She is on acetaminophen, hydralazine, Apresoline I believe p.r.n. She is on heparin, aztreonam, doxycycline, hydroxyurea, Zofran, and diphenhydramine. Outside medications were noted and reconciliated. ALLERGIES: Include ceftriaxone, hydrocodone, ketorolac, Levaquin, penicillin, tramadol and vancomycin. FAMILY HISTORY: Noncontributory. SOCIAL HISTORY: Negative for smoking, alcohol, or drug abuse. PHYSICAL EXAMINATION: VITAL SIGNS: Temperature is 97.8, pulse rate is 109, respiratory rate 17, blood pressure 141/97, and saturation 96%. GENERAL: Alert and responsive, in no acute distress. HEENT: Oral exam, no thrush. Eye exam, no icterus. Normocephalic. Neck is supple. No jugular venous distention. HEART: Regular. No gallop or murmur. No friction rub. Tachycardic. ABDOMEN: Soft. Positive bowel sounds. Some tenderness. LUNGS: Clear bilaterally. No rhonchi or rales. She has some back and abdominal pain. SKIN: No rash. MUSCULOSKELETAL: No effusion. Legs are without cellulitis. PERIPHERAL VASCULAR: No cyanosis. GENITOURINARY: No [place]. LINE SITES: Without phlebitis. NEUROLOGIC: Intact and nonfocal. Alert and oriented x3. LABORATORY DATA: Laboratory data is as follows. UA had 3+ leukocyte esterase and too many to count white blood cells. Creatinine 0.8. LFTs noted. White count 17.7 and hemoglobin 8.5. CULTURES: Urine culture with mixed organisms. Blood cultures negative to date. Chest x-ray showed atelectasis only. No acute consolidation or infiltrate. Again, UA 3+ leukocyte esterase too many to count white blood cells. ASSESSMENT AND PLAN: 1. The patient has significantly positive urinalysis likely complicated urinary tract infection with elevated white count and possible sepsis. The patient also could have leukocytosis secondary to sickle cell crisis and sickle pain syndrome which can cause leukocytosis. It does look like sickle cell anemia. Continue doxycycline and aztreonam because of multiple antibiotic allergies. Continue with doxycycline and aztreonam for urinary tract infection, possible sepsis, and elevated white count. Check final blood cultures. Recheck UA and C and S. previous urine culture with mixed organisms basically gram-positive. It is unclear of the significance of this. Continue aztreonam and doxycycline. We will adjust accordingly based on workup including cultures and followup urinalysis. Continue treatment for complicated urinary tract infection and possible sepsis. Monitor leukocytosis. 2. Sickle cell anemia. 3. Sickle cell crisis with sickle cell pain syndrome. Pain management per primary care team and also management per primary care team and Hematology/Oncology is also on the case. 4. pain management 5. Anemia. 6. No history of diabetes or hypertension. 7. Allergies to ceftriaxone, hydrocodone, ketorolac, Levaquin, penicillin, tramadol, vancomycin. 8. Family history is noncontributory. 9. Social history is negative. 10. MAR was noted. 11. Case was discussed with RN. 12. Continue treatment per primary care team and consultants. 13. Orders were noted and entered. Ban Durant M.D. DR: LC JOB#: [id number] CC: LIZET
[2019-10-28] MEDS: HYDROmorphone 4mg tab ORAL PRN ×3 (02:22→10:27)
[2019-10-28] MEDS: DiphenhydrAMINE 50mg/ml Inj IVP PRN (03:28)
[2019-10-28] MEDS: HYDROmorphone 1mg/ml Carpuject IVP PRN ×3 (03:29→12:11)
[2019-10-28] MEDS: Aztreonam Inj 2 GM in D5W 110 ML IVPB SCH ×2 (03:29→12:10)
[2019-10-28 04:00] VITALS: BP 133/77
--- NOTE | 2019-10-28 07:23 | NUR ---
HAND-OFF: Report given to LANETTE Cook. Pt is awake and in stable condition. Plan of care endorsed.
--- NOTE | 2019-10-28 07:24 | NUR ---
NURSE NOTES: Patient received awake, awaiting pain medication. No SOB or acute distress. PICC line on left upper arm intact and patent, IVF infusing well. PICC line on right upper arm intact, not patent as endorsed by night RN. HOB elevated. Bed locked in lowest position. Call light within reach. Will continue plan of care.
[2019-10-28 08:00] VITALS: BP 128/70
[2019-10-28] MEDS: Doxycycline Hyclate 100 MG in D5W 110 ML IV SCH (08:08)
[2019-10-28] MEDS: Hydroxyurea 500mg cap ORAL SCH (08:10)
[2019-10-28] MEDS: Heparin 5000 units/ml inj SUBQ SCH ×2 (08:13→09:00)
[2019-10-28] MEDS ORDERED: DiphenhydrAMINE 25mg Tab ORAL PRN (10:45)
[2019-10-28 12:00] VITALS: BP 119/82
[2019-10-28] MEDS ORDERED: HYDROmorphone 2mg tab ORAL PRN (13:30)
--- NOTE | 2019-10-28 14:21 | NUR ---
NURSE NOTES: Patient left the hospital premises but refused to sign AMA form. Patient also refused to have TREY and DARIANA PICC lines removed. Charge nurse and rag room supervisor aware. RN called 911 and reported incident, spoke with open hearth furnace operator helper [id number]. Dr Allen Robison notified, awaiting response.
--- NOTE | 2019-10-28 14:30 | NUR ---
*-* INSURANCE *-* ALL CLINICALS AND REVIEWS [facility] BE[facility]: [facility]# [phone] FAX# [phone] REVIEWS/CLINICALS Addendum: 10/29/19 at 1356 by PHI TARANGO CM ref# [id number]
--- NOTE | 2019-10-28 14:45 | Hematology/Onc Progress Note ---
Assessment/Plan Assessment/Plan Assessment/Plan: # Sickle cell crisis, labs reveal elevated reticulocyte count, LDH, indirect bilirubin, hemoglobin is currently stable and patient is not requiring blood transfusion, she also has had a recent spontaenous in 09/2018. --> need to confirm that she does in fact have sickle cell, though base on labs does appear likely --> sickle cell screen is pending --> consider hgb electrophoresis as well --> hydroxyurea as needed to prevent cva/heart disease, vascular events in future (consider starting as outpatient) --> hemolysis labs as needed --> IVF and pain management --> abx as needed --> NONCOMPLIANT WITH LABS AND MEDS --> hgb trend 8.5 # Leukocytosis, no obvious signs of infection at this point in time, however will obtain pancultures patient does have bilateral midlines, obtain urine culture, and chest x-ray --> monitor for resolution closely --> imaging prn # Hyperbiliribinemia --> likely due to rbc breakdown # Dehydration --> goal of euvolemia --> fluids started # Dvt ppx amb and hep sq Appreciate consultation and dw Rn Subjective Constitutional: Denies: no symptoms, chills, fever, malaise, weakness, other HEENT: Denies: no symptoms, eye pain, blurred vision, tearing, double vision, ear pain, ear discharge, nose pain, nose congestion, throat pain, throat swelling, mouth pain, mouth swelling, other Cardiovascular: Denies: no symptoms, chest pain, edema, irregular heart rate, lightheadedness, palpitations, syncope, other Respiratory: Denies: no symptoms, cough, shortness of breath, SOB with excertion, SOB at rest, sputum, wheezing, other Gastrointestinal/Abdominal: Denies: no symptoms, abdomen distended, abdominal pain, black stools, tarry stools, blood in stool, constipated, diarrhea, difficulty swallowing, nausea, poor appetite, poor fluid intake, rectal bleeding , vomiting, other Genitourinary: Denies: no symptoms, burning, discharge, frequency, flank pain, hematuria, incontinence, pain, urgency, other Endocrine: Denies: no symptoms, excessive sweating, flushing, intolerance to cold, intolerance to heat, increased hunger, increased thirst, increased urine, unexplained weight gain, unexplained weight loss, other Hematologic/Lymphatic: Denies: no symptoms, anemia, easy bleeding, easy bruising, adenopathy, other Allergies: Coded Allergies: CEFTRIAXONE (Verified Allergy, Unknown, 09/02/18) HYDROCODONE (Verified Allergy, Unknown, 09/02/18) KETOROLAC (Verified Allergy, Unknown, 10/25/19) LEVOFLOXACIN (Verified Allergy, Unknown, 09/02/18) PENICILLINS (Verified Allergy, Unknown, 09/02/18) TRAMADOL (Verified Allergy, Unknown, 10/25/19) VANCOMYCIN (Verified Allergy, Unknown, 09/02/18) Subjective 10/27: labs noted, no bleeding or chills, mildly less pain today, says will consider f/u with heme outpatient 10/28: for dc today, refusing labs, seen by id, for abx, sean Rn Objective Objective Last 24 Hour Vital Signs Date Time Temp Pulse Resp B/P (MAP) Pulse Ox O2 Delivery O2 Flow Rate FiO2 10/28/19 12:00 97.9 81 21 119/82 (94) 97 10/28/19 09:00 Room Air 10/28/19 08:00 99.0 83 18 128/70 (89) 98 10/28/19 04:00 98.0 75 18 133/77 (95) 98 10/28/19 00:00 98.0 101 15 145/100 (115) 96 10/27/19 21:00 Room Air 10/27/19 20:00 98.0 93 16 133/97 (109) 98 10/27/19 18:59 97.8 10/27/19 18:27 97.8 10/27/19 15:51 97.8 109 17 141/97 (112) 96 10/27/19 11:32 97.8 95 17 130/92 (105) 96 10/27/19 08:00 Nasal Cannula 2.0 10/27/19 07:57 97.8 96 17 142/99 (113) 96 10/27/19 07:33 97.8 10/27/19 06:00 128/81 10/27/19 04:00 97.8 96 17 128/81 (97) 96 10/27/19 00:00 97.6 99 16 122/79 (93) 96 10/26/19 23:42 122/79 10/26/19 21:00 Nasal Cannula 2.0 10/26/19 20:00 97.8 90 17 131/87 (102) 95 10/26/19 18:00 110/70 10/26/19 16:00 98.1 70 20 110/70 (83) 94 Intake and Output 10/27/19 10/28/19 19:00 07:00 Intake Total 2170 ml Balance 2170 ml Intake Oral 1440 ml IV Total 730 ml Height (Feet): 5 Height (Inches): 2.00 Weight (Pounds): 140 Objective Physical Exam: Vitals: reviewed General: NAD HEENT: nc, at Neck: supple Chest: clear breath sounds bilaterally Cardiovascular: RRR, no s3, s4 Abdomen: soft, nontender, nd Extremities: no cce, normal range of motion Neuro: alert and oriented Evaristo Uriostegui MD Oct 28, 2019 14:45
--- NOTE | 2019-10-28 14:53 | NUR ---
CASE MANAGEMENT:REVIEW SI;SEVERE SYMPTOMATIC ANEMIA. S/P PRBC TRANSFUSION 97.9 81 21 119/82 97% ON RA H/H 9.1/27.6 URIC AC 8.4 IS;IV DILAUDID Q4HR/PRN IV AZACTAM Q8HR IVF NS @100ML/HR HYDREA PO QD JAY-KEX TP QD \: 3E MED SURG UNIT PLAN: CONTROL PAIN DCP; FROM HOME Addendum: 10/28/19 at 1457 by YA WAGONER LVN PATIENT LEFT AMA @230PM
--- NOTE | 2019-10-28 23:01 | Discharge Summary ---
Discharge Summary Hospital Course Date of Admission Oct 25, 2019 at 14:43 Date of Discharge Oct 28, 2019 at 14:20 Admitting Diagnosis Sickle Cell Crisis, Urinary Tract Infection HPI Kosta Adame is a 29 year old female who was admitted on Oct 25, 2019 at 14:43 for Sickle Cell Crisis, Urinary Tract Infection Consultations Infectious disease, hematology Hospital Course This is a 29-year-old female with a past medical history of sickle cell disease who presents to the hospital complaining of diffuse body pain and joint pain. Patient was recently discharged from [facility] a couple days ago, specifics regarding this hospitalization are unclear however she presented today with 2 midlines. Currently patient states that the pain is severe and labs do show that she has an elevated LDH, reticulocyte count, and indirect bilirubin, hemoglobin is currently stable and is not indicative of need for blood transfusion at this time. Patient states at home she usually takes morphine but that is not helping the pain at the moment. She denied cough fever or chills. Pending chest x-ray to assess midline versus PICC line and rule out acute chest syndrome although patient does not have any symptoms. Her WBC is elevated however she denies symptoms of burning with urination cough, chest pain , or other discomfort besides diffuse body aches and joint pains, denies abdominal pain. Patient is being admitted to the hospital for sickle cell crisis, currently she is requesting IV Benadryl and IV Dilaudid, she endorses that she has allergies to many medications, virtually all antibiotics. She denies any other issues at this time but states she just is not severe diffuse body pain. The patient was admitted for sickle cell pain crisis. She was continued on broad spectrum antibiotics for possible UTI. Her blood cultures remained negative. Infectious disease was consulted for management of antibiotics. She was continued on aztreonam and doxycycline given her multiple allergies. Her pain was controlled with IV pain medications. However she refused blood draws. She was transitioned to a PO pain regimen with IV for breakthrough and became very upset requesting only IV. Explained to patient to try po first before IV. She became upset the patient then decided to leave AMA. It was explained to the patient that she could not leave before confirming the reason for her bilateral midlines. She stated that her PCP ordered midlines over the phone for her in preparation of a port, and she had them placed at outside hospitals. When these hospitals were called they had no record of her getting midline catheters placed. The patient then decided to leave with the midline problems catheters in place. Unable to stop patient. She was alert and oriented x 4 and had decision making capacity. Could not hold patient against her will. Law enforcement was contacted since patient had midline catheters in place. Unable to explain to her the potential serious consequences of leaving AMA. Review of systems: Constitutional: Denies: chills, diaphoresis, fever, malaise, weakness, other HEENT: Denies: eye pain, blurred vision, tearing, double vision, ear pain, ear discharge, nose pain, nose congestion, throat pain, throat swelling, mouth pain , mouth swelling, Cardiovascular: Denies: chest pain, edema, lightheadedness, palpitations, syncope, Respiratory: Denies: cough, orthopnea, shortness of breath, SOB with excertion , SOB at rest, sputum, stridor, wheezing, other Gastrointestinal/Abdominal: Denies: abdomen distended, abdominal pain, black stools, tarry stools, blood in stool, constipated, diarrhea, difficulty swallowing, nausea, poor appetite, poor fluid intake, rectal bleeding, vomiting , other Genitourinary: Denies: burning, discharge, frequency, flank pain, hematuria, incontinence, pain, urgency, other Neurologic/Psychiatric: Denies: anxiety, depressed, emotional problems, headache, numbness, paresthesia, pre-existing deficit, seizure, tingling, tremors, weakness, other Endocrine: Denies: excessive sweating, flushing, intolerance to cold, intolerance to heat, increased hunger, increased thirst, increased urine, unexplained weight gain, unexplained weight loss, other MSK: denies joint pains, swelling, stiffness Hematologic/Lymphatic: Denies: anemia, easy bleeding, easy bruising, other General: WDWN female in NAD, A&O x 4 HEENT: Normocephalic cephalic atraumatic, pupils equal round reactive to light and accommodation, nares patent and no symmetrical, no tonsillar exudates, mucous membranes moist CV: Regular rate regular rhythm, no murmurs, rubs, or gallops Pulm: Lungs clear to auscultation bilaterally. No wheezes, rhonchi, or rales GI: Soft, nontender, nondistended, bowel sounds present Neuro: CN 2-12 intact bilaterally, no focal signs. Ext: No lower extremity edema bilaterally. + bilateral midlines in place. C/d/ i. Skin: no rashes lesions or ulcers Msk: Joints symmetrical in upper extremity and lower extremity bilaterally, no joint swelling. Lymph: No lymphadenopathy in upper extremity and lower extremity Discharge Condition Upon Discharge: grave Discharge Vital Signs Last Vital Signs Date Time Temp Pulse Resp B/P (MAP) Pulse Ox O2 Delivery O2 Flow Rate FiO2 10/28/19 12:00 97.9 81 21 119/82 (94) 97 10/28/19 09:00 Room Air 10/27/19 08:00 2.0 Discharge Disposition Patient left AMA Discharge Diagnoses: (1) Sickle cell pain crisis (2) Anemia (3) Sepsis (4) Urinary tract infection (5) Sickle cell anemia with pain Gerhard Morgan D.O. Oct 28, 2019 23:01
--- NOTE | 2019-10-29 16:45 | NUR ---
*-* INSURANCE *-* ALL CLINICALS AND REVIEWS HAVE BEEN FAXED TO: [facility]# [phone] FAX# [phone] REVIEWS/CLINICALS ref# [id number]
== END 2019-10-28 14:20 | disposition left against medical advice (07) | DRG 662 ==
LOC: EMR 09:27 → 3E 14:43 → EDBEDREQ 16:03
DX: D57.00 Hb-SS disease with crisis, unspecified (principal); N39.0 Urinary tract infection, site not specified; E80.6 Other disorders of bilirubin metabolism; E86.0 Dehydration; Z88.6 Allergy status to analgesic agent; Z88.1 Allergy status to other antibiotic agents; Z88.0 Allergy status to penicillin
CPT/HCPCS: 36415; 71046; 80053; 80307; 81003; 81025; 82248; 83615; 83690; 85025; 85044; 85610; 85730; 87040; 87086; 93005; 96361; 96374; 96375; 96376; 99285; J2765; J3490; J7030